=== PATIENT | female | born 1930 | race Two or more races ===

== ENCOUNTER 2016-09-30 09:52 | Outpatient (CLI) | payer MEDICARE, MEDICAID | END 2016-09-30 23:59 | disposition home or self-care (01) | LOC: WOU 09:52 | PROVIDERS: ATTEND Podiatrist Foot & Ankle Surgery | DX: L60.0 Ingrowing nail (principal); L03.032 Cellulitis of left toe; L03.031 Cellulitis of right toe; L60.3 Nail dystrophy; Z85.3 Personal history of malignant neoplasm of breast; Z85.43 Personal history of malignant neoplasm of ovary | CPT/HCPCS: 11730; 11732; A6402; J3490 ==

== ENCOUNTER 2016-10-10 10:19 | Outpatient (CLI) | payer MEDICARE, MEDICAID | END 2016-10-10 23:59 | disposition home or self-care (01) | LOC: WOU 10:19 | PROVIDERS: ATTEND Podiatrist Foot & Ankle Surgery | DX: Z48.89 Encounter for other specified surgical aftercare (principal); M79.675 Pain in left toe(s); L03.032 Cellulitis of left toe | CPT/HCPCS: G0463 ==